=== PATIENT | female | born 1955 | race Caucasian/White ===

== ENCOUNTER 2016-08-22 16:44 | Emergency (ER) | payer SELFPAY ==
[2016-08-22 16:49] VITALS: BP 176/86; PULSE 95; RESP 20; TEMP 98.2; O2SAT 98
[2016-08-22] MEDS ORDERED: CLON0.5T PO (17:33)
[2016-08-22] MEDS ORDERED: LEXA10TA PO (17:33)
[2016-08-22] MEDS ORDERED: METO25TA3 PO (18:43)
== END 2016-08-22 16:51 | disposition left against medical advice (07) ==
LOC: NED 16:44
DX: R07.9 Chest pain, unspecified (principal); Z53.21 Procedure and treatment not carried out due to patient leaving prior to being seen by health care provider
CPT/HCPCS: 99281

== ENCOUNTER 2016-08-22 17:26 | Emergency (ER) | payer OTHER ==
[~2016-08-22] VITALS: Ht 172.7 cm; Wt 70.6 kg
[2016-08-22 17:33] VITALS: BP 186/106; PULSE 88; RESP 18; TEMP 97.6; O2SAT 98
[2016-08-22] MEDS ORDERED: CLON0.5T PO (17:33)
[2016-08-22] MEDS ORDERED: LEXA10TA PO (17:33)
[2016-08-22 17:57] VITALS: O2SAT 100
[2016-08-22] MEDS ORDERED: SODIUM CHLORIDE 0.9% FLUSH 10 ML FLUSH IVF PRN (18:00)
[2016-08-22] MEDS ORDERED: SODIUM CHLORID 0.9% 500 ML INJ 500 ML IV ONE (18:00)
--- NOTE | 2016-08-22 18:01 | PD ---
HPI Chief Complaint: Cardiac Complaint Time Seen by Provider: 17:31 Travel History International Travel<30 days: No Contact w/Intl Traveler<30days: No Traveled to known affect area: No History of Present Illness HPI The patient is a 60-year-old female who presents to the emergency department for palpitations. The patient states her last week she is expressed palpitations, sometimes when she awakens from sleep in the morning, sometimes at work. The patient felt like she was having palpitations earlier today and thinks her heart rate was between 120 and 140. The patient did not obtain EKG or a rhythm strip at that time, went to the emergency department at [facility], however, they're extremely busy and subsequently came to [facility]. When the patient arrived her heart rate was back into the 80s and 90s and her palpitations had resolved. The patient does complain of mild shortness of breath with her palpitations, denies any chest pain, diaphoresis, lightheadedness, dizziness, nausea, or vomiting. She does state she was placed on Lexapro 3 weeks ago and takes Klonopin as needed for anxiety. She denies any history of arrhythmias, atrial fibrillation, atrial flutter, or WPW. The patient states she drinks 2 cups of coffee in the morning, that has been chronic and there is been no acute increase in caffeine recently. He denies any illicit drug use. Symptoms are mild to moderate, there are no known alleviating or exacerbating factors. PFSH Past Medical History Depression: Yes Influenza Vaccination: No ?: Not Past Surgical History Gynecologic Surgery: Yes (CONIZATION) Social History Alcohol Use: No Tobacco Use: No Substance Use: No Allergies-Medications (Allergen,Severity, Reaction): Coded Allergies: No Known Allergies (Unverified , 08/22/16) Reported Meds & Prescriptions Reported Meds & Active Scripts Active Metoprolol Tartrate 25 Mg Tab 12.5 Mg PO BID 30 Days Reported Clonazepam 0.5 Mg Tab 0.25 Mg PO DAILY Lexapro (Escitalopram Oxalate) 10 Mg Tab 10 Mg PO DAILY Review of Systems Except as stated in HPI: all other systems reviewed are Neg General / Constitutional: No: Fever HENT: No: Lightheadedness Cardiovascular: Positive: Palpitations, Tachycardia, No: Chest Pain or Discomfort, Diaphoresis Respiratory: Positive: Shortness of Breath Gastrointestinal: No: Nausea, Vomiting Neurologic: No: Dizziness Physical Exam Narrative GENERAL: Awake, alert, pleasant 60-year-old female who appears her stated age and is in no acute respiratory distress. SKIN: Focused skin assessment warm/dry. HEAD: Atraumatic. Normocephalic. EYES: No injection or drainage. ENT: No nasal bleeding or discharge. Mucous membranes pink and moist. NECK: Trachea midline. No JVD. CARDIOVASCULAR: Regular rate and rhythm. No murmur appreciated. Heart rate in the 80s. RESPIRATORY: No accessory muscle use. Clear to auscultation. Breath sounds equal bilaterally. MUSCULOSKELETAL: No obvious deformities. No clubbing. No cyanosis. No edema. NEUROLOGICAL: Awake and alert. No obvious cranial nerve deficits. Motor grossly within normal limits. Normal speech. PSYCHIATRIC: Appropriate mood and affect; insight and judgment normal. Data Data Last Documented VS Vital Signs Date Time Temp Pulse Resp B/P Pulse Ox O2 Delivery O2 Flow Rate FiO2 08/22/16 19:05 18 100 Room Air 08/22/16 19:05 98.0 75 151/89 Orders Ckmb (Isoenzyme) Profile (08/22/16 17:54) Complete Blood Count With Diff (08/22/16 17:54) Comprehensive Metabolic Panel (08/22/16 17:54) Magnesium (Mg) (08/22/16 17:54) Troponin I (08/22/16 17:54) Ecg Monitoring (08/22/16 17:54) Bilateral Bp Monitoring (08/22/16 17:54) Iv Access Insert/Monitor (08/22/16 17:54) Oximetry (08/22/16 17:54) Oxygen Administration (08/22/16 17:54) Sodium Chloride 0.9% Flush (Ns Flush) (08/22/16 18:00) Sodium Chlorid 0.9% 500 Ml Inj (Ns 500 M (08/22/16 18:00) Electrocardiogram (08/22/16 17:32) Labs Laboratory Tests Test 08/22/16 18:10 White Blood Count 8.5 TH/MM3 Red Blood Count 4.57 MIL/MM3 Hemoglobin 12.9 GM/DL Hematocrit 38.9 % Mean Corpuscular Volume 85.1 FL Mean Corpuscular Hemoglobin 28.2 PG Mean Corpuscular Hemoglobin 33.2 % Concent Red Cell Distribution Width 12.8 % Platelet Count 232 TH/MM3 Mean Platelet Volume 8.5 FL Neutrophils (%) (Auto) 72.8 % Lymphocytes (%) (Auto) 16.3 % Monocytes (%) (Auto) 7.0 % Eosinophils (%) (Auto) 1.4 % Basophils (%) (Auto) 2.5 % Neutrophils # (Auto) 6.2 TH/MM3 Lymphocytes # (Auto) 1.4 TH/MM3 Monocytes # (Auto) 0.6 TH/MM3 Eosinophils # (Auto) 0.1 TH/MM3 Basophils # (Auto) 0.2 TH/MM3 CBC Comment DIFF FINAL Differential Comment Sodium Level 138 MEQ/L Potassium Level 3.7 MEQ/L Chloride Level 104 MEQ/L Carbon Dioxide Level 26.0 MEQ/L Anion Gap 8 MEQ/L Blood Urea Nitrogen 14 MG/DL Creatinine 1.10 MG/DL Estimat Glomerular Filtration 51 ML/MIN Rate Random Glucose 101 MG/DL Calcium Level 8.9 MG/DL Magnesium Level 2.1 MG/DL Total Bilirubin 0.9 MG/DL Aspartate Amino Transf 15 U/L (AST/SGOT) Alanine Aminotransferase 17 U/L (ALT/SGPT) Alkaline Phosphatase 82 U/L Total Creatine Kinase 73 U/L Troponin I LESS THAN 0.02 NG/ML Total Protein 7.2 GM/DL Albumin 4.1 GM/DL [facility] Medical Decision Making Medical Screen Exam Complete: Yes Emergency Medical Condition: Yes Medical Record Reviewed: Yes Interpretation(s) EKG reveals normal sinus rhythm with a rate 84. No evidence of WPW. No evidence of Brugada. Inverted T-wave in lead 3. Differential Diagnosis Differential diagnoses includes arrhythmia, SVT, sinus tachycardia, atrial flutter, atrial fibrillation, electrolyte abnormality, anxiety, mitral valve prolapse. Narrative Course IV was established, labs are drawn and sent, and the patient was placed on cardiac telemetry monitoring and continuous pulse oximetry monitoring. EKG was ordered and interpreted. The patient's heart rate upon arrival was in the 80s, she was normal sinus rhythm, she was monitored on cardiac telemetry monitoring for any visible arrhythmias or ectopy. Electrolyte for sent to lab. The patient states she recently had a TSH performed and had an ultrasound of her thyroid secondary to nodule, states her labs have always been normal. She is currently changing physicians from Dr. Scales to Dr. Elaina Perry and has an appointment on Monday. The patient was signed out to the oncoming physician at 7 PM with laboratory evaluation pending. Diagnosis Primary Impression: Palpitations Patient Instructions: General Instructions Additional Instructions: Please provide a patient a copy of her EKG results and lab results at discharge. Follow-up with your primary physician on Monday as scheduled. You may benefit from outpatient Holter monitor and/or event monitor and/or loop recorder. He also may benefit from outpatient echocardiogram. Take a baby aspirin daily. Metoprolol 12.5 mg twice a day if symptoms persist until evaluated by her primary physician on Monday. Med/Other Pt SpecificInfo: Prescription(s) given Scripts Metoprolol Tartrate 25 Mg Tab12.5 Mg PO BID 30 Days Ref 0 Prov:Moe Barlow MD 08/22/16 Disposition: 01 DISCHARGE HOME Condition: Stable Moe Barlow MD Aug 22, 2016 18:01
[2016-08-22 18:13] VITALS: BP_SYST 164; BP_SYST 175; BP_DIAS 87; BP_DIAS 88
[2016-08-22 18:26] LABS: AUTOMATED NEUTROPHIL # 6.2 TH/MM3 (1.8-7.7); BASOPHIL # 0.2 TH/MM3 (0-0.2); BASOPHIL % 2.5 % (0.0-2.0); EOSINOPHIL # 0.1 TH/MM3 (0-0.4); EOSINOPHIL % 1.4 % (0.0-4.0); HEMATOCRIT 38.9 % (35.0-46.0); HEMO FLAGS DIFF FINAL; LYMPH % 16.3 % (9.0-44.0); LYMPHOCYTE # 1.4 TH/MM3 (1.0-4.8); MEAN CELL VOLUME 85.1 FL (80.0-100.0); MEAN CORPUSCULAR HEMOGLOBIN 28.2 PG (27.0-34.0); MEAN CORPUSCULAR HGB CONC 33.2 % (32.0-36.0); NEUT % 72.8 % (16.0-70.0); PLATELET COUNT 232 TH/MM3 (150-450); RED BLOOD COUNT 4.57 MIL/MM3 (4.00-5.30); RED CELL DISTRIBUTION WIDTH 12.8 % (11.6-17.2); WHITE BLOOD COUNT 8.5 TH/MM3 (4.0-11.0)
[2016-08-22 18:38] LABS: CHLORIDE 104 MEQ/L (98-107); POTASSIUM 3.7 MEQ/L (3.5-5.1); SODIUM (NA) 138 MEQ/L (136-145)
[2016-08-22 18:42] LABS: ANION GAP 8 MEQ/L (5-15); BLOOD UREA NITROGEN 14 MG/DL (7-18); MAGNESIUM 2.1 MG/DL (1.5-2.5)
[2016-08-22] MEDS ORDERED: METO25TA3 PO (18:43)
[2016-08-22 18:45] LABS: ALT (GPT) 17 U/L (10-53); AST (GOT) 15 U/L (15-37); GLOMERULAR FILTRATION RATE 51 ML/MIN (>89)
[2016-08-22 18:46] LABS: TOTAL BILIRUBIN ADULT 0.9 MG/DL (0.2-1.0)
[2016-08-22 18:47] LABS: ALKALINE PHOSPHATASE 82 U/L (45-117)
[2016-08-22 18:54] LABS: CREATINE KINASE 73 U/L (26-192)
[2016-08-22 19:05] VITALS: BP 151/89; PULSE 75; RESP 18; TEMP 98; O2SAT 100
--- NOTE | 2016-08-22 19:23 | PD ---
Physical Exam Narrative Patient was seen by ED physician and signed out to me. Data Data Last Documented VS Vital Signs Date Time Temp Pulse Resp B/P Pulse Ox O2 Delivery O2 Flow Rate FiO2 08/22/16 19:05 18 100 Room Air 08/22/16 19:05 98.0 75 151/89 Orders Ckmb (Isoenzyme) Profile (08/22/16 17:54) Complete Blood Count With Diff (08/22/16 17:54) Comprehensive Metabolic Panel (08/22/16 17:54) Magnesium (Mg) (08/22/16 17:54) Troponin I (08/22/16 17:54) Ecg Monitoring (08/22/16:54) Bilateral Bp Monitoring (08/22/16:54) Iv Access Insert/Monitor (08/22/16:54) Oximetry (08/22/16 17:54) Oxygen Administration (08/22/16:54) Sodium Chloride 0.9% Flush (Ns Flush) (08/22/16 18:00) Sodium Chlorid 0.9% 500 Ml Inj (Ns 500 M (08/22/16 18:00) Labs Laboratory Tests Test 08/22/16 18:10 White Blood Count 8.5 TH/MM3 Red Blood Count 4.57 MIL/MM3 Hemoglobin 12.9 GM/DL Hematocrit 38.9 % Mean Corpuscular Volume 85.1 FL Mean Corpuscular Hemoglobin 28.2 PG Mean Corpuscular Hemoglobin 33.2 % Concent Red Cell Distribution Width 12.8 % Platelet Count 232 TH/MM3 Mean Platelet Volume 8.5 FL Neutrophils (%) (Auto) 72.8 % Lymphocytes (%) (Auto) 16.3 % Monocytes (%) (Auto) 7.0 % Eosinophils (%) (Auto) 1.4 % Basophils (%) (Auto) 2.5 % Neutrophils # (Auto) 6.2 TH/MM3 Lymphocytes # (Auto) 1.4 TH/MM3 Monocytes # (Auto) 0.6 TH/MM3 Eosinophils # (Auto) 0.1 TH/MM3 Basophils # (Auto) 0.2 TH/MM3 CBC Comment DIFF FINAL Differential Comment Sodium Level 138 MEQ/L Potassium Level 3.7 MEQ/L Chloride Level 104 MEQ/L Carbon Dioxide Level 26.0 MEQ/L Anion Gap 8 MEQ/L Blood Urea Nitrogen 14 MG/DL Creatinine 1.10 MG/DL Estimat Glomerular Filtration 51 ML/MIN Rate Random Glucose 101 MG/DL Calcium Level 8.9 MG/DL Magnesium Level 2.1 MG/DL Total Bilirubin 0.9 MG/DL Aspartate Amino Transf 15 U/L (AST/SGOT) Alanine Aminotransferase 17 U/L (ALT/SGPT) Alkaline Phosphatase 82 U/L Total Creatine Kinase 73 U/L Troponin I LESS THAN 0.02 NG/ML Total Protein 7.2 GM/DL Albumin 4.1 GM/DL [facility] Supervised Visit with [facility]: No Interpretation(s) 1922 PM. CBC within normal limit. CMP within normal limit. Cardiac enzymes are normal. Diagnosis Primary Impression: Cardiac arrhythmia Qualified Code: I49.9 - Cardiac arrhythmia, unspecified cardiac arrhythmia type Referrals: Elaina Perry MD (PCP) call for appointment Patient Instructions: General Instructions, Aspirin (By mouth), Palpitations ( ED) Departure Forms: Tests/Procedures Additional Instruction: Please provide a patient a copy of her EKG results and lab results at discharge. Follow-up with your primary physician on Monday as scheduled. You may benefit from outpatient Holter monitor and/or event monitor and/or loop recorder. He also may benefit from outpatient echocardiogram. Take a baby aspirin daily. Metoprolol 12.5 mg twice a day if symptoms persist until evaluated by her primary physician on Monday. Scripts Metoprolol Tartrate 25 Mg Tab12.5 Mg PO BID 30 Days Ref 0 Prov:Moe Barlow MD 08/22/16 Disposition: 01 DISCHARGE HOME Condition: Stable Carl Rangel MD Aug 22, 2016 19:23
--- NOTE | 2016-08-23 09:59 | EKG ---
Date Performed: 08/22/2016 Time Performed: 17:32:39 PTAGE: 60 years EKG: Sinus rhythm NORMAL ECG Compared to prior tracing no significant change PREVIOUS TRACING :11/19/04 DOCTOR: Armen Omer Interpretating Date/Time 08/23/2016 09:53:54
== END 2016-08-22 19:40 | disposition home or self-care (01) ==
LOC: PHED 17:26
DX: I49.9 Cardiac arrhythmia, unspecified (principal); R00.2 Palpitations; R06.02 Shortness of breath; Z79.899 Other long term (current) drug therapy; Z86.59 Personal history of other mental and behavioral disorders
CPT/HCPCS: 80053; 82550; 83735; 84484; 85025; 93005; 96360; 99284; J7040